=== PATIENT | male | born 2000 | race Caucasian/White ===

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

== ENCOUNTER 2019-10-31 17:35 | Emergency (ER) | payer BC, OTHER ==
[~2019-10-31] VITALS: Ht 172.7 cm; Wt 77.1 kg
--- NOTE | 2019-10-31 17:50 | NUR ---
Dr. Adams at bedside for MSE
[2019-10-31] MEDS ORDERED: BUPROPION (17:56)
[2019-10-31] MEDS ORDERED: ADDERAL (17:56)
[2019-10-31] MEDS ORDERED: MAG HYDROX/AL HYDROX/SIMETH 30 ML LIQUID UDC ONE (17:59)
[2019-10-31] MEDS ORDERED: LIDOCAINE VISCUS 2% 15 ML UDC ONE (17:59)
[2019-10-31] MEDS ORDERED: MAG HYDROX/AL HYDROX/SIMETH 30 ML LIQUID UDC PO ONE (18:00)
[2019-10-31] MEDS ORDERED: LIDOCAINE VISCUS 2% 15 ML UDC MM ONE (18:00)
--- NOTE | 2019-10-31 18:36 | NUR ---
Patient discharged to home in stable condition. Written and verbal after care instructions given. Patient verbalizes understanding of instructions. Stressed follow up or return to ER for worsening s/s. Patient ambulating with steady gait. NAD noted
[2019-10-31 18:42] VITALS: BP 115/76
== END 2019-10-31 18:36 | disposition home or self-care (01) ==
LOC: ER 17:37
DX: K22.4 Dyskinesia of esophagus (principal); Z11.59 Encounter for screening for other viral diseases
CPT/HCPCS: 99283; U0003; A4663

== ENCOUNTER 2021-03-30 14:45 | Emergency (ER) | payer BC, OTHER ==
[~2021-03-30] VITALS: Ht 175.3 cm; Wt 77.1 kg
[~2021-03-30 14:45] MED LIST changes: +ADDERAL; +BUPROPION
[2021-03-30] MEDS ORDERED: LIDOCAINE HCL 1% 20 ML VIAL IJ ONE (15:15)
[2021-03-30 15:35] VITALS: BP 124/79
== END 2021-03-30 15:35 | disposition home or self-care (01) ==
LOC: ER 14:59
DX: L03.011 Cellulitis of right finger (principal); L60.0 Ingrowing nail; M79.644 Pain in right finger(s); H53.50 Unspecified color vision deficiencies; J45.909 Unspecified asthma, uncomplicated; R55 Syncope and collapse
CPT/HCPCS: 11765; 99283; J3490; A4663

== ENCOUNTER 2024-09-20 14:45 | Emergency (ER) | payer BC ==
[~2024-09-20] VITALS: Ht 172.7 cm; Wt 81.6 kg
[2024-09-20] MEDS: IBUPROFEN 800 MG TABLET PO ONE (15:45)
[2024-09-20] MEDS ORDERED: IBUPROFEN 800 MG TABLET ONE (16:07)
[2024-09-20 17:08] VITALS: BP 118/68; TEMP 98; O2SAT 99
== END 2024-09-20 17:00 | disposition home or self-care (01) ==
LOC: ER 14:45
DX: S60.221A Contusion of right hand, initial encounter (principal); S70.01XA Contusion of right hip, initial encounter; M25.511 Pain in right shoulder; M25.561 Pain in right knee; M25.562 Pain in left knee; M54.2 Cervicalgia; R51.9 Headache, unspecified; F32.A Depression, unspecified; F41.9 Anxiety disorder, unspecified; J45.909 Unspecified asthma, uncomplicated; H53.50 Unspecified color vision deficiencies; Z86.59 Personal history of other mental and behavioral disorders; V29.498A Other motorcycle driver injured in collision with other motor vehicles in traffic accident, initial encounter; Y93.89 Activity, other specified; Y92.488 Other paved roadways as the place of occurrence of the external cause; Y99.8 Other external cause status
CPT/HCPCS: 70450; 71250; 72125; 73020; 73560; A4606; A4663